=== PATIENT | male | born 1975 | race Caucasian/White ===

== ENCOUNTER 2022-05-04 19:59 | Emergency (ER) | payer OTHER, SELFPAY ==
[2022-05-04 20:13] VITALS: BP 141/87; PULSE 71; RESP 17; TEMP 36.5; O2SAT 99; BMI 25.0
[2022-05-04 20:15] LABS: Bilirubin Urine UA NEGATIVE (NEGATIVE); Glucose Urine UA NEGATIVE (Negative); Ketones Urine UA NEGATIVE (NEGATIVE); Leukocyte Esterase Urine UA TRACE (NEGATIVE); Nitrite Urine UA NEGATIVE (Negative); Occult Blood Urine UA 3+ (Negative); Protein Urine UA 1+ (Negative); Urobilinogen Urine UA 0.2 E.U./dL (0.2)
[2022-05-04 20:21] LABS: Appearance Urine UA SL CLOUDY
[2022-05-04 20:22] LABS: Color Urine UA OTHER
[2022-05-04 20:26] LABS: Bacteria Urine Occasional (0-1); Culture Indicated Urine Specimen Cultured; RBC Urine >100/HPF (0-5/HPF); Squamous Epithelial Cell Urine 0-1 /HPF (0-5/HPF); WBC Urine 1-5/HPF (0-5/HPF)
--- NOTE | 2022-05-04 20:51 | ED_ITS ---
HPI - General Adult General Chief complaint: Urogenital-Male Stated complaint: Blood in urine Time Seen by Provider: 05/04/22 20:26 Source: patient Mode of arrival: Ambulatory History of Present Illness HPI narrative: 47-year-old male here for evaluation of blood in his urine which she started noticing this morning and also which he noticed is some pain in his right flank. No history of stones. No fevers. No change in bowel habits. Had some nausea this morning. No chest pain. No shortness of breath. No skin changes over the area. He is able to urinate without problems. Reports no history of infections. He is not concerned about sexually transmitted diseases. Related Data Allergies Allergy/AdvReac Type Severity Reaction Status Date / Time Penicillins Allergy Verified 05/04/22 20:13 Review of Systems Constitutional Constitutional: Reports system reviewed and no additional complaints, except as documented Cardiovascular Cardiovascular: Reports system reviewed and no additional complaints, except as documented Respiratory Respiratory: Reports system reviewed and no additional complaints, except as documented Gastrointestinal Gastrointestinal: Reports system reviewed and no additional complaints, except as documented Genitourinary Genitourinary: Reports system reviewed and no additional complaints, except as documented Integumentary/Breasts Skin/Breast: Reports system reviewed and no additional complaints, except as do cumented Patient History Medical History Healthy adult Social History Smoking Status: Never smoker Smoking Status: Never smoker alcohol intake frequency: a few times a week Substance Use Type: does not use Exam Initial Vital Signs Initial Vital Signs: Vital Signs Temperature 97.7 F 05/04/22 20:13 Pulse Rate 71 05/04/22 20:13 Respiratory Rate 17 05/04/22 20:13 Blood Pressure 141/87 H 05/04/22 20:13 Pulse Oximetry 99 05/04/22 20:13 Oxygen Delivery Method 05/04/22 20:13 HENID Head: normal to inspection and normocephalic Resp Effort & Inspection: normal respiratory effort Cardio Rate: regular rate GI Inspection: normal to inspection Skin General: no rashes or lesions noted Neuro General: patient alert, patient awake and moves all extremities Extrem General: normal to inspection Course Orders Ordered: ED Orders 05/04/22 20:08 Urinalysis and Microscopic Stat Urine Culture Stat 05/04/22 20:52 CT kidney ureter bladder (KUB) Stat 05/04/22 21:05 Basic Metabolic Panel Stat Complete Blood Count AUTO DIFF Stat Vital Signs Vital signs: Vital Signs - 8 hr 05/04/22 20:13 05/04/22 22:27 Temperature 97.7 F Pulse Rate 71 79 Respiratory Rate 17 18 Blood Pressure 141/87 H 137/81 Pulse Oximetry 99 97 Oxygen Delivery Method Room Air Room Air Medical Decision Making Lab Data Lab results reviewed: Yes I reviewed the patient's lab results. Result diagrams: 05/04/22 21:05 05/04/22 21:05 Labs: Lab Results 05/04/22 05/04/22 05/04/22 Range/Units 20:08 21:05 21:05 WBC 8.0 (4.5-11.0) X10^3/uL RBC 4.97 (4.5-5.9) X10^6/uL Hgb 15.2 (13.5-17.5) g/dL Hct 45.2 (41-53) % MCV 91.0 (80-100) fL MCH 30.5 (26-34) PG MCHC 33.6 (30-36) % RDW 13.2 (11.6-14.8) % Plt Count 213 (150-400) X10^3/uL Neut % (Auto) 57.5 (50-75) % Lymph % (Auto) 27.1 (25-40) % Russell % (Auto) 12.1 (3-14) % Eos % (Auto) 2.6 (2-4) % Baso % (Auto) 0.7 (0-2) % Neut # (Auto) 4600 (6410-0875) /uL Lymph # (Auto) 2200 (0503-8388) /uL Russell # (Auto) 1000 H (0-900) /uL Eos # (Auto) 200 (0-450) /uL Baso # (Auto) 100 (0-100) /uL Sodium 139 (137-145) mmol/L Potassium 3.8 (3.4-5.1) mmol/L Chloride 101 (98-107) mmol/L Carbon Dioxide 28 (22-32) mmol/L BUN 13 (9-20) mg/dL Creatinine 0.88 (0.66-1.25) mg/dL Estimated GFR > 60 (>60) mL/min BUN/Creatinine Ratio 14.8 (6-22) Glucose 91 (70-100) mg/dL Calcium 9.5 (8.4-10.2) mg/dL Urine Color Other Urine Appearance Sl cloudy Urine pH 5.0 (4.5-8.0) Ur Specific [place] 1.010 (1.000-1.035) Urine Protein 1+ H (Negative) Urine Glucose (UA) Negative (Negative) g/dL Urine Ketones Negative (NEGATIVE) Urine Occult Blood 3+ H (Negative) Urine Nitrate Negative (Negative) Urine Bilirubin Negative (NEGATIVE) Urine Urobilinogen 0.2 (0.2) E.U./dL Ur Leukocyte Esterase Trace H (NEGATIVE) Urine RBC >100/hpf H (0-5/HPF) Urine WBC 1-5/hpf (0-5/HPF) Ur Squamous Epith Cells 0-1 /hpf (0-5/HPF) Urine Bacteria Occasional (0-1) (None) Ur Culture Indicated? Specimen cultured Imaging Data CT scan - abdomen/pelvis: Radiologist's Impression: [place] [address] CT Scan Report Signed Patient: Alfredo Ramos MR#: [id number] : 1975 Acct:[id number] Age/Sex: 47 / M Date of Service: 05/04/22 Loc: Accession Number: [id number] ?? Procedure: CT kidney ureter bladder (KUB) Ordering Provider: Luther Pierre D.O. PROCEDURE:? CT KIDNEY URETER BLADDER (KUB) ? INDICATIONS:? R flank pain eval for stone ? TECHNIQUE:? Axial sections were acquired from the lung bases to the pubic symphysis.? Co ashley and sagittal reformats were performed.? For radiation dose reduction, the following was used: ?automated exposure control, adjustment of mA and/or kV according to patient size.? ? COMPARISON:? None. ? FINDINGS:? Image quality:? Excellent.? ? Lung bases:? Visualized lung bases are clear. Heart:? Heart is normal in size.? There is a small hiatal hernia. ? URINARY: Right Kidney and Ureter:? There is a punctate obstructing stone within the distal right ureter with associated mild right hydroureteronephrosis.? Mild perinephric and periureteral fat stranding also demonstrated.? No additional renal or urinary stones identified. ? Left Kidney and Ureter: ? No stones or hydronephrosis.? No hydroureter. ? Bladder:? Normal wall thickness. No stones. ? ? ? ABDOMEN: Liver:? Noncontrast evaluation of the liver demonstrates no discrete? mass. Gallbladder:? Within normal limits without calcified gallstones.? ? Biliary ducts:? No biliary ductal dilatation.? ? Pancreas:? Unremarkable.? ? Spleen:? Normal in size.? ? Adrenal Glands:? No adrenal nodules.? ? ? Stomach and Bowel:? Stomach, small bowel loops, and colon are normal in caliber and wall thickness.? The appendix is normal in appearance.? There is colonic diverticulosis without acute diverticulitis.? Peritoneum:? No abnormal intraperitoneal fluid.? No free air.? ? Ventral Wall: ? No hernia.? Abdominal Nodes:? No retroperitoneal or mesenteric adenopathy by size criteria.? Vessels:? Aorta and inferior vena cava are normal in size.? ? PELVIS: Pelvic Organs:? Unremarkable.? ? Pelvic Nodes: No enlarged lymph nodes.? Miscellaneous: No inguinal hernias identified.? There is mild fat stranding in the inguinal fossa extending to the right inguinal canal.? ? Bones:? Visualized osseous structures demonstrate no suspicious focal lesions. IMPRESSION:? ? 1. Punctate obstructing urinary stone in the distal right ureter with associated mild right hydroureteronephrosis. ? 2. No evidence of appendicitis. ? 3. Colonic diverticulosis without acute diverticulitis. ? 4. Mild fat stranding in the right inguinal fossa extending to the inguinal canal.? No evidence of associated hernia. ? ? Dictated by: Issac Trejo M.D. on 05/04/2022 at 22:00 ? ? Approved by: Issac Trejo M.D. on 05/04/2022 at 22:05?? MDM Narrative Medical decision making narrative: Urinalysis shows no signs of an infection. Renal function is unremarkable. CT scan shows right-sided distal ureteral stone which does correspond his presenting symptoms. Did discuss this with the patient. We did discuss return precautions and follow-up instructions. He expressed understanding and agreement. Discharge Plan Departure Patient Disposition: Home Clinical Impression: Right ureteral stone Instructions: DI for Kidney Stones Activity Restrictions/Additional Instructions: You can take Tylenol or ibuprofen for any discomfort. Sure to stay hydrated like we discussed. Contact her primary doctor for a follow-up. Return to the emergency department for any new or worsening symptoms. Visit Report Forms: Patient Portal/API
--- NOTE | 2022-05-04 20:52 | DI.CT.S_ITS ---
PROCEDURE: CT KIDNEY URETER BLADDER (KUB) INDICATIONS: R flank pain eval for stone TECHNIQUE: Axial sections were acquired from the lung bases to the pubic symphysis. Coronal and sagittal reformats were performed. For radiation dose reduction, the following was used: automated exposure control, adjustment of mA and/or kV according to patient size. COMPARISON: None. FINDINGS: Image quality: Excellent. Lung bases: Visualized lung bases are clear. Heart: Heart is normal in size. There is a small hiatal hernia. URINARY: Right Kidney and Ureter: There is a punctate obstructing stone within the distal right ureter with associated mild right hydroureteronephrosis. Mild perinephric and periureteral fat stranding also demonstrated. No additional renal or urinary stones identified. Left Kidney and Ureter: No stones or hydronephrosis. No hydroureter. Bladder: Normal wall thickness. No stones. ABDOMEN: Liver: Noncontrast evaluation of the liver demonstrates no discrete mass. Gallbladder: Within normal limits without calcified gallstones. Biliary ducts: No biliary ductal dilatation. Pancreas: Unremarkable. Spleen: Normal in size. Adrenal Glands: No adrenal nodules. Stomach and Bowel: Stomach, small bowel loops, and colon are normal in caliber and wall thickness. The appendix is normal in appearance. There is colonic diverticulosis without acute diverticulitis. Peritoneum: No abnormal intraperitoneal fluid. No free air. Ventral Wall: No hernia. Abdominal Nodes: No retroperitoneal or mesenteric adenopathy by size criteria. Vessels: Aorta and inferior vena cava are normal in size. PELVIS: Pelvic Organs: Unremarkable. Pelvic Nodes: No enlarged lymph nodes. Miscellaneous: No inguinal hernias identified. There is mild fat stranding in the inguinal fossa extending to the right inguinal canal. Bones: Visualized osseous structures demonstrate no suspicious focal lesions. IMPRESSION: 1. Punctate obstructing urinary stone in the distal right ureter with associated mild right hydroureteronephrosis. 2. No evidence of appendicitis. 3. Colonic diverticulosis without acute diverticulitis. 4. Mild fat stranding in the right inguinal fossa extending to the inguinal canal. No evidence of associated hernia. Dictated by: Issac Trejo M.D. on 05/04/2022 at 22:00 Approved by: Issac Trejo M.D. on 05/04/2022 at 22:05
[2022-05-04 21:18] LABS: Add Manual Diff / Slide Review NO; Basophils Absolute Auto 100 /uL (0-100); Basophils Percent Auto 0.7 % (0-2); Eosinophils Absolute Auto 200 /uL (0-450); Eosinophils Percent Auto 2.6 % (2-4); Hematocrit 45.2 % (41-53); Hemoglobin 15.2 g/dL (13.5-17.5); Lymphocytes Absolute Auto 2200 /uL (1100-4500); Lymphocytes Percent Auto 27.1 % (25-40); Mean Corpuscular HGB Conc 33.6 % (30-36); Mean Corpuscular Hemoglobin 30.5 PG (26-34); Monocytes Absolute Auto 1000 /uL (0-900); Monocytes Percent Auto 12.1 % (3-14); Neutrophils Absolute Auto 4600 /uL (1500-7000); Neutrophils Percent Auto 57.5 % (50-75); Platelet Count 213 X10^3/uL (150-400); Red Blood Cell Count 4.97 X10^6/uL (4.5-5.9); Red Cell Distribution Width 13.2 % (11.6-14.8)
[2022-05-04 21:26] LABS: BUN Creatinine Ratio 14.8 (6-22); Blood Urea Nitrogen 13 mg/dL (9-20); Calcium 9.5 mg/dL (8.4-10.2); Carbon Dioxide 28 mmol/L (22-32); Chloride 101 mmol/L (98-107); Estimated Glomerular Filt Rate > 60 mL/min (>60); Glucose 91 mg/dL (70-100); HEMOLYSIS 20 (0-50); Potassium 3.8 mmol/L (3.4-5.1); Sodium 139 mmol/L (137-145)
[2022-05-04 22:27] VITALS: BP 137/81; PULSE 79; RESP 18; O2SAT 97
== END 2022-05-04 22:28 | disposition home or self-care (01) ==
PROVIDERS: Emergency Provider Emergency Medicine
DX: N20.1 Calculus of ureter (principal)
CPT/HCPCS: 74176; 80048; 81001; 85025; 87086; 99281; 99284